=== PATIENT | female | born 1990 | race Caucasian/White ===

== ENCOUNTER 2017-04-14 17:22 | Emergency (ER) | payer OTHER ==
[~2017-04-14] VITALS: Ht 154.9 cm; Wt 90.9 kg
[2017-04-14] MEDS ORDERED: DiphenhydrAMINE HCL 50 MG/ML VIAL IM ONE (19:15)
[2017-04-14] MEDS ORDERED: PredniSONE 20 MG TABLET PO ONE (19:15)
[2017-04-14 19:45] VITALS: BP 110/75
== END 2017-04-14 19:54 | disposition home or self-care (01) ==
LOC: EMS 17:23
DX: L50.0 Allergic urticaria (principal); F17.210 Nicotine dependence, cigarettes, uncomplicated
CPT/HCPCS: 96372; 99283; J1200; J7512